=== PATIENT | male | born 1985 | race Two or more races ===

== ENCOUNTER 2017-12-06 19:00 | Inpatient (IN) | payer MEDICAID, OTHER ==
[~2017-12-06] VITALS: Ht 170.2 cm; Wt 69.6 kg
[~2017-12-06 19:00] MED LIST: ATRIPLA TABLET1 EAC1 ORAL; ITRACONAZOLE100 MG PO
[2017-12-06 19:30] VITALS: BP 125/82
[2017-12-06] MEDS ORDERED: Sodium Chloride 500ML 500 ML IV ONE (19:37)
[2017-12-06] MEDS ORDERED: Morphine Sulfate 4mg/ml Inj (IV USE ONLY) IVP ONE (19:45)
[2017-12-06] MEDS ORDERED: Acyclovir 1,000 MG in D5W 275 ML IVPB ONE (19:45)
[2017-12-06 20:19] LABS: HEMATOCRIT 40.7 % (42.0-52.0); HEMOGLOBIN 14.2 G/DL (14.2-18.0); MEAN CORPUSCULAR VOLUME 86 FL (80-99); PLATELET COUNT 174 K/UL (150-450); RED BLOOD COUNT 4.72 M/UL (4.70-6.10); RED CELL DISTRIBUTION WIDTH 11.5 % (11.6-14.8); WHITE BLOOD COUNT 3.4 K/UL (4.8-10.8)
[2017-12-06 20:20] LABS: BASOPHILS % (AUTO) 2.2 % (0.0-2.0); EOSINOPHILS % (AUTO) 4.1 % (0.0-3.0); LYMPHOCYTES % (AUTO) 28.4 % (20.0-45.0); MONOCYTES % (AUTO) 14.4 % (1.0-10.0); NEUTROPHILS % (AUTO) 50.8 % (45.0-75.0)
[2017-12-06 20:29] LABS: ANION GAP 9 mmol/L (5-15); BLOOD UREA NITROGEN 20 mg/dL (7-18); CALCIUM 8.5 MG/DL (8.5-10.1); CARBON DIOXIDE 27 MMOL/L (21-32); CHLORIDE 103 MMOL/L (98-107); CREATININE 0.9 MG/DL (0.55-1.30); POTASSIUM 3.9 MMOL/L (3.5-5.1); SODIUM 139 MMOL/L (136-145)
[2017-12-06 20:40] LABS: ALANINE AMINOTRANSFERASE 30 U/L (12-78); ALBUMIN 3.9 G/DL (3.4-5.0); ALBUMIN/GLOBULIN RATIO 0.8 (1.0-2.7); ALKALINE PHOSPHATASE 108 U/L (46-116); ASPARTATE AMINO TRANSFERASE 30 U/L (15-37); BILIRUBIN,TOTAL 1.1 MG/DL (0.2-1.0)
[2017-12-06 20:42] LABS: BILIRUBIN,DIRECT 0.2 MG/DL (0.0-0.3)
--- NOTE | 2017-12-06 22:19 | Emergency Room Report ---
History of Present Illness General Chief Complaint: Chest Pain Source: Patient Present Illness HPI 32-year-old male presents ED for evaluation. Patient complaining of chest pain 1 day. Sharp, left-sided, radiating to the back. Patient states there is also a rash on his chest for the last 2 days. Also on the left side. States it is itchy and painful. Pain is 10 out of 10, sharp radiating from the front to the back. Denies shortness of breath. Notes history of HIV. States he is not taking medication for the last several months because of insurance issues. Denies fevers or chills. No other aggravating relieving factors. Denies any other associated symptoms Patient History Past Medical History: HIV Past Surgical History: none Pertinent Family History: none Social History: Denies: smoking, alcohol use, drug use Immunizations: UTD Reviewed Nursing Documentation: PMH: Agreed; PSxH: Agreed Nursing Documentation-PMH Past Medical History: No History, Except For Hx Cardiac Problems: No - HIV Hx Hypertension: No Hx Pacemaker: No Hx Asthma: No Hx COPD: No Hx Diabetes: No Hx Cancer: No Hx Gastrointestinal Problems: No Hx Dialysis: No Hx Neurological Problems: No Hx Cerebrovascular Accident: No Hx Seizures: No Review of Systems All Other Systems: negative except mentioned in HPI Physical Exam Vital Signs Date Time Temp Pulse Resp B/P (MAP) Pulse Ox O2 Delivery O2 Flow Rate FiO2 12/06/17 19:03 98.6 77 14 122/80 95 Room Air 98.6 Sp02 EP Interpretation: reviewed, normal General Appearance: no apparent distress, alert, GCS 15, non-toxic Head: normocephalic, atraumatic Eyes: bilateral eye normal inspection, bilateral eye PERRL ENT: hearing grossly normal, normal pharynx, no angioedema, normal voice Neck: full range of motion, supple/symm/no masses Respiratory: chest non-tender, lungs clear, normal breath sounds, speaking full sentences Cardiovascular #1: regular rate, rhythm, no edema Cardiovascular #2: 2+ carotid (R), 2+ carotid (L), 2+ radial (R), 2+ radial (L) , 2+ dorsalis pedis (R), 2+ dorsalis pedis (L) Gastrointestinal: normal bowel sounds, non tender, soft, non-distended, no guarding, no rebound Rectal: deferred Genitourinary: normal inspection, no CVA tenderness Musculoskeletal: back normal, gait/station normal, normal range of motion, non- tender Neurologic: alert, oriented x3, responsive, motor strength/tone normal, sensory intact, speech normal Psychiatric: judgement/insight normal, memory normal, mood/affect normal, no suicidal/homicidal ideation Reflexes: 3+ bicep (R), 3+ bicep (L), 3+ tricep (R), 3+ tricep (L), 3+ knee (R) , 3+ knee (L) Skin: normal color, warm/dry, well hydrated, rash - vesicular rash on left side of chest, anterior and posteriorr. not crossing midline Lymphatic: no adenopathy Medical Decision Making Diagnostic Impression: Primary Impression: Shingles Qualified Codes: B02.7 - Disseminated zoster Additional Impression: HIV (human immunodeficiency virus infection) ER Course Hospital Course 32-year-old male presents ED with rash to the chest Differential diagnoses include: Cellulitis, abscess, rash. Clinical course Patient placed on stretcher. After initial history, physical exam reveals male in mild distress. On exam there is a vesicular rash to the left anterior and posterior chest. Uncrossing midline. Consistent with shingles. Patient is HIV positive, not taking any medication at this time. Patient is immunocompromise. Patient will require admission for IV acyclovir Patient given gabapentin, pain meds, IV's of acyclovir here EKG - NSR, no acute ishcemic changes interpreted by fl labs reviewed - leukopenia, Hb/Hct stable, no electrolyte abnormalities. Case discussed with Dr Lawson and he agreed to accept the patient to his service for further care and support Diagnosis - shingles, HIV Patient admitted to floor in serious condition Labs Test 12/06/17 20:02 White Blood Count 3.4 K/UL (4.8-10.8) Red Blood Count 4.72 M/UL (4.70-6.10) Hemoglobin 14.2 G/DL (14.2-18.0) Hematocrit 40.7 % (42.0-52.0) Mean Corpuscular Volume 86 FL (80-99) Mean Corpuscular Hemoglobin 30.2 PG (27.0-31.0) Mean Corpuscular Hemoglobin Concent 35.0 G/DL (32.0-36.0) Red Cell Distribution Width 11.5 % (11.6-14.8) Platelet Count 174 K/UL (150-450) Mean Platelet Volume 7.3 FL (6.5-10.1) Neutrophils (%) (Auto) 50.8 % (45.0-75.0) Lymphocytes (%) (Auto) 28.4 % (20.0-45.0) Monocytes (%) (Auto) 14.4 % (1.0-10.0) Eosinophils (%) (Auto) 4.1 % (0.0-3.0) Basophils (%) (Auto) 2.2 % (0.0-2.0) Sodium Level 139 MMOL/L (136-145) Potassium Level 3.9 MMOL/L (3.5-5.1) Chloride Level 103 MMOL/L (98-107) Carbon Dioxide Level 27 MMOL/L (21-32) Anion Gap 9 mmol/L (5-15) Blood Urea Nitrogen 20 mg/dL (7-18) Creatinine 0.9 MG/DL (0.55-1.30) Estimat Glomerular Filtration Rate > 60 mL/min (>60) Glucose Level 88 MG/DL (74-106) Calcium Level 8.5 MG/DL (8.5-10.1) Total Bilirubin 1.1 MG/DL (0.2-1.0) Direct Bilirubin 0.2 MG/DL (0.0-0.3) Aspartate Amino Transf (AST/SGOT) 30 U/L (15-37) Alanine Aminotransferase (ALT/SGPT) 30 U/L (12-78) Alkaline Phosphatase 108 U/L (46-116) Total Protein 8.6 G/DL (6.4-8.2) Albumin 3.9 G/DL (3.4-5.0) Globulin 4.7 g/dL Albumin/Globulin Ratio 0.8 (1.0-2.7) EKG Diagnostic Results Rate: normal Rhythm: NSR ST Segments: no acute changes ASA given to the pt in ED: No Rhythm Strip Diag. Results EP Interpretation: yes Rhythm: NSR, no PVC's, no ectopy Last Vital Signs Date Time Temp Pulse Resp B/P (MAP) Pulse Ox O2 Delivery O2 Flow Rate FiO2 12/06/17 20:09 98.6 12/06/17 19:30 77 14 Room Air 12/06/17 19:30 125/82 97 Status: improved Disposition: ADMITTED INPATIENT Condition: Serious Referrals: [facility],REFERRING (PCP) Wesly Winslow MD Dec 06, 2017 22:19
[2017-12-06] MEDS ORDERED: NKM (22:27)
[2017-12-06 22:45] VITALS: BP 123/79
[2017-12-06 23:30] VITALS: BP 120/82
[2017-12-06] MEDS: D5 1/2NS 1,000 ML IV SCH (23:50)
[2017-12-06] MEDS: Morphine Sulfate 2mg/ml Inj IVP PRN (23:52)
[2017-12-07 04:00] VITALS: BP 112/72
[2017-12-07] MEDS: Morphine Sulfate 2mg/ml Inj IVP PRN ×3 (06:24→18:41)
[2017-12-07 06:36] LABS: HEMATOCRIT 40.4 % (42.0-52.0); HEMOGLOBIN 13.6 G/DL (14.2-18.0); LYMPHOCYTES % (AUTO) 18.9 % (20.0-45.0); MEAN CORPUSCULAR VOLUME 86 FL (80-99); MONOCYTES % (AUTO) 12.4 % (1.0-10.0); NEUTROPHILS % (AUTO) 63.7 % (45.0-75.0); PLATELET COUNT 163 K/UL (150-450); RED BLOOD COUNT 4.68 M/UL (4.70-6.10); RED CELL DISTRIBUTION WIDTH 11.6 % (11.6-14.8); WHITE BLOOD COUNT 3.6 K/UL (4.8-10.8)
[2017-12-07 07:17] LABS: ANION GAP 11 mmol/L (5-15); BLOOD UREA NITROGEN 18 mg/dL (7-18); CALCIUM 7.9 MG/DL (8.5-10.1); CARBON DIOXIDE 23 MMOL/L (21-32); CHLORIDE 104 MMOL/L (98-107); CREATININE 0.7 MG/DL (0.55-1.30); POTASSIUM 3.8 MMOL/L (3.5-5.1); SODIUM 138 MMOL/L (136-145)
[2017-12-07 08:44] VITALS: BP 109/66
--- NOTE | 2017-12-07 10:49 | History and Physical ---
History of Present Illness General Date patient seen: Dec 07, 2017 Time patient seen: 12:00 Reason for Hospitalization: Chest Pain Present Illness HPI 32 yo man with HIV off medications c/o chest and back pain in EDFound to have Zoster and admitted Notes current pain in area of lesions around left chest through axillae and onto back No N/V No fevers or chills PMHx: HIV FHx: Reviewed by me; not pertinent for this encounter SHx; No tobacco/EtOH Allergies: Coded Allergies: MEROPENEM (Verified Allergy, Mild, Rash, 12/07/17) SULFADIAZINE (Verified Allergy, Mild, Rash, 12/07/17) Medication History Scheduled Efavirenz/Emtricitab/Tenofovir (Atripla), 1 TAB ORAL DAILY, (Reported) Itraconazole (Itraconazole), 200 MG PO BID, (Reported) No Known Medications* (NKM - No Known Medications*), 0 ., (Reported) Patient History Limited by: language barrier History Provided By: Patient Healthcare decision maker Resuscitation status Full Code Advanced Directive on File No Review of Systems Constitutional: Reports: malaise, weakness Eye: Reports: no symptoms ENT: Reports: no symptoms Respiratory: Reports: no symptoms Cardiovascular: Reports: chest pain Gastrointestinal: Reports: no symptoms Genitourinary: Reports: no symptoms Musculoskeletal: Reports: back pain, muscle pain Skin: Reports: rash Psychiatric: Reports: no symptoms Neurological: Reports: tingling Endocrine: Reports: no symptoms Hematologic/Lymphatic: Reports: no symptoms All Other Systems: negative except mentioned in HPI Physical Exam General Appearance: no apparent distress, alert, thin Lines, tubes and drains: peripheral HEENT: normocephalic, atraumatic, mucous membranes moist, PERRL, EOMI, pharynx normal, supple Neck: non-tender, supple Respiratory/Chest: lungs clear, normal breath sounds Breasts: no masses Cardiovascular/Chest: normal peripheral pulses, normal rate, regular rhythm, no JVD Abdomen: normal bowel sounds, soft Extremities: normal range of motion Skin Exam: rash - vesicular eruption on left chest wall through axillae and onto left scapular area 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, no motor/sensory deficits Lymphatic: anterior cervical, posterior cervical (L), posterior cervical (R) Last 24 Hour Vital Signs Date Time Temp Pulse Resp B/P (MAP) Pulse Ox O2 Delivery O2 Flow Rate FiO2 12/07/17 09:00 Room Air 12/07/17 08:44 97.5 83 20 109/66 (80) 97 97.5 12/07/17 04:00 97.7 77 20 112/72 (85) 96 97.7 12/06/17 23:30 98.4 83 19 120/82 (95) 97 98.4 12/06/17 23:00 Room Air 12/06/17 22:59 85 16 123/79 97 Room Air 12/06/17 22:45 85 16 123/79 97 Room Air 12/06/17 20:09 98.6 12/06/17 19:30 77 14 Room Air 12/06/17 19:30 98.6 14 125/82 97 Room Air 98.6 12/06/17 19:03 98.6 77 14 122/80 95 Room Air 98.6 Intake and Output 12/06/17 12/07/17 19:00 07:00 Intake Total 675 ml Balance 675 ml Intake Oral 150 ml IV Total 525 ml # Voids 2 Laboratory Tests Test 12/06/17 20:02 12/07/17 05:20 White Blood Count 3.4 K/UL (4.8-10.8) L 3.6 K/UL (4.8-10.8) L Red Blood Count 4.72 M/UL (4.70-6.10) 4.68 M/UL (4.70-6.10) L Hemoglobin 14.2 G/DL (14.2-18.0) 13.6 G/DL (14.2-18.0) L Hematocrit 40.7 % (42.0-52.0) L 40.4 % (42.0-52.0) L Mean Corpuscular Volume 86 FL (80-99) 86 FL (80-99) Mean Corpuscular Hemoglobin 30.2 PG (27.0-31.0) 29.0 PG (27.0-31.0) Mean Corpuscular Hemoglobin Concent 35.0 G/DL (32.0-36.0) 33.6 G/DL (32.0-36.0) Red Cell Distribution Width 11.5 % (11.6-14.8) L 11.6 % (11.6-14.8) Platelet Count 174 K/UL (150-450) 163 K/UL (150-450) Mean Platelet Volume 7.3 FL (6.5-10.1) 7.6 FL (6.5-10.1) Neutrophils (%) (Auto) 50.8 % (45.0-75.0) 63.7 % (45.0-75.0) Lymphocytes (%) (Auto) 28.4 % (20.0-45.0) 18.9 % (20.0-45.0) L Monocytes (%) (Auto) 14.4 % (1.0-10.0) H 12.4 % (1.0-10.0) H Eosinophils (%) (Auto) 4.1 % (0.0-3.0) H 4.0 % (0.0-3.0) H Basophils (%) (Auto) 2.2 % (0.0-2.0) H 1.0 % (0.0-2.0) Sodium Level 139 MMOL/L (136-145) 138 MMOL/L (136-145) Potassium Level 3.9 MMOL/L (3.5-5.1) 3.8 MMOL/L (3.5-5.1) Chloride Level 103 MMOL/L (98-107) 104 MMOL/L (98-107) Carbon Dioxide Level 27 MMOL/L (21-32) 23 MMOL/L (21-32) Anion Gap 9 mmol/L (5-15) 11 mmol/L (5-15) Blood Urea Nitrogen 20 mg/dL (7-18) H 18 mg/dL (7-18) Creatinine 0.9 MG/DL (0.55-1.30) 0.7 MG/DL (0.55-1.30) Estimat Glomerular Filtration Rate > 60 mL/min (>60) > 60 mL/min (>60) Glucose Level 88 MG/DL (74-106) 113 MG/DL (74-106) H Calcium Level 8.5 MG/DL (8.5-10.1) 7.9 MG/DL (8.5-10.1) L Total Bilirubin 1.1 MG/DL (0.2-1.0) H Direct Bilirubin 0.2 MG/DL (0.0-0.3) Aspartate Amino Transf (AST/SGOT) 30 U/L (15-37) Alanine Aminotransferase (ALT/SGPT) 30 U/L (12-78) Alkaline Phosphatase 108 U/L (46-116) Total Protein 8.6 G/DL (6.4-8.2) H Albumin 3.9 G/DL (3.4-5.0) Globulin 4.7 g/dL Albumin/Globulin Ratio 0.8 (1.0-2.7) L Height (Feet): 5 Height (Inches): 7.00 Weight (Pounds): 153 Medications Current Medications Medications (Trade) Dose Ordered Sig/Artemio Route PRN Reason Start Time Stop Time Status Last Admin Dose Admin Acetaminophen (Tylenol) 650 mg Q4H PRN ORAL Mild Pain/Temp > 100.5 12/06/17 23:15 01/05/18 23:14 Acetaminophen/ Hydrocodone Bitart ([place] 5/325) 1 tab Q6H PRN ORAL Moderate Pain (Pain Scale 4-6) 12/06/17 23:15 12/13/17 23:14 Acyclovir (Zovirax) 800 mg FIVE TIMES A DAY ORAL 12/07/17 07:00 01/06/18 06:59 12/07/17 08:58 Dextrose/Sodium Chloride 1,000 ml @ 75 mls/hr [id number] IV 12/06/17 23:15 01/05/18 23:14 12/06/17 23:50 Morphine Sulfate (Morphine Sulfate) 2 mg Q6HR PRN IVP Severe Pain (Pain Scale 7-10) 12/06/17 23:15 12/13/17 23:14 12/07/17 06:24 Ondansetron HCl (Zofran) 4 mg Q6H PRN IVP Nausea & Vomiting 12/06/17 23:15 01/05/18 23:14 Assessment/Plan Status: not improved Status Narrative 32 yo man with HIV unknown CD4 count and HZV Assessment/Plan 1) HZV Continue IV acyclovir Pain control 2) HIV -ID consult 3) Leukopenia Likely secondary to HIV check CD4 counts Follow for signs of sepsis/superinfection of Zoster DVT Prophylaxis: SCD's Code Status: Full Hospital Classification declaration: Based on this initial evaluation and depending on the patient's clinical course I anticipate that this patient will require hospitalization for at least 2-3 days Disposition: Once the patient is stable to leave the hospital I anticipate the patient will likely be discharged to the following environment: Home I spent 70 minutes on this patients car and 36 minutes was dedicated to counseling and care coordination Time of note may not reflect time of encounter Estevan Hartmann M.D. Dec 07, 2017 10:49
[2017-12-07 12:01] VITALS: BP 113/71
[2017-12-07] MEDS: D5 1/2NS 1,000 ML IV SCH (12:17)
--- NOTE | 2017-12-07 12:41 | Infectious Diseases Prog Note ---
Assessment/Plan Assessment/Plan Full consult to follow: Left trunk HZV HIV iv acyclovir cd4/viral load triumeq thank you Subjective Allergies: Coded Allergies: MEROPENEM (Verified Allergy, Mild, Rash, 12/07/17) SULFADIAZINE (Verified Allergy, Mild, Rash, 12/07/17) Objective Vital Signs Last 24 Hour Vital Signs Date Time Temp Pulse Resp B/P (MAP) Pulse Ox O2 Delivery O2 Flow Rate FiO2 12/07/17 12:01 97.7 66 20 113/71 (85) 97 97.7 12/07/17 09:00 Room Air 12/07/17 08:44 97.5 83 20 109/66 (80) 97 97.5 12/07/17 04:00 97.7 77 20 112/72 (85) 96 97.7 12/06/17 23:30 98.4 83 19 120/82 (95) 97 98.4 12/06/17 23:00 Room Air 12/06/17 22:59 85 16 123/79 97 Room Air 12/06/17 22:45 85 16 123/79 97 Room Air 12/06/17 20:09 98.6 12/06/17 19:30 77 14 Room Air 12/06/17 19:30 98.6 14 125/82 97 Room Air 98.6 12/06/17 19:03 98.6 77 14 122/80 95 Room Air 98.6 Height (Feet): 5 Height (Inches): 7.00 Weight (Pounds): 153 Laboratory Tests Test 12/06/17 20:02 12/07/17 05:20 White Blood Count 3.4 K/UL (4.8-10.8) L 3.6 K/UL (4.8-10.8) L Red Blood Count 4.72 M/UL (4.70-6.10) 4.68 M/UL (4.70-6.10) L Hemoglobin 14.2 G/DL (14.2-18.0) 13.6 G/DL (14.2-18.0) L Hematocrit 40.7 % (42.0-52.0) L 40.4 % (42.0-52.0) L Mean Corpuscular Volume 86 FL (80-99) 86 FL (80-99) Mean Corpuscular Hemoglobin 30.2 PG (27.0-31.0) 29.0 PG (27.0-31.0) Mean Corpuscular Hemoglobin Concent 35.0 G/DL (32.0-36.0) 33.6 G/DL (32.0-36.0) Red Cell Distribution Width 11.5 % (11.6-14.8) L 11.6 % (11.6-14.8) Platelet Count 174 K/UL (150-450) 163 K/UL (150-450) Mean Platelet Volume 7.3 FL (6.5-10.1) 7.6 FL (6.5-10.1) Neutrophils (%) (Auto) 50.8 % (45.0-75.0) 63.7 % (45.0-75.0) Lymphocytes (%) (Auto) 28.4 % (20.0-45.0) 18.9 % (20.0-45.0) L Monocytes (%) (Auto) 14.4 % (1.0-10.0) H 12.4 % (1.0-10.0) H Eosinophils (%) (Auto) 4.1 % (0.0-3.0) H 4.0 % (0.0-3.0) H Basophils (%) (Auto) 2.2 % (0.0-2.0) H 1.0 % (0.0-2.0) Sodium Level 139 MMOL/L (136-145) 138 MMOL/L (136-145) Potassium Level 3.9 MMOL/L (3.5-5.1) 3.8 MMOL/L (3.5-5.1) Chloride Level 103 MMOL/L (98-107) 104 MMOL/L (98-107) Carbon Dioxide Level 27 MMOL/L (21-32) 23 MMOL/L (21-32) Anion Gap 9 mmol/L (5-15) 11 mmol/L (5-15) Blood Urea Nitrogen 20 mg/dL (7-18) H 18 mg/dL (7-18) Creatinine 0.9 MG/DL (0.55-1.30) 0.7 MG/DL (0.55-1.30) Estimat Glomerular Filtration Rate > 60 mL/min (>60) > 60 mL/min (>60) Glucose Level 88 MG/DL (74-106) 113 MG/DL (74-106) H Calcium Level 8.5 MG/DL (8.5-10.1) 7.9 MG/DL (8.5-10.1) L Total Bilirubin 1.1 MG/DL (0.2-1.0) H Direct Bilirubin 0.2 MG/DL (0.0-0.3) Aspartate Amino Transf (AST/SGOT) 30 U/L (15-37) Alanine Aminotransferase (ALT/SGPT) 30 U/L (12-78) Alkaline Phosphatase 108 U/L (46-116) Total Protein 8.6 G/DL (6.4-8.2) H Albumin 3.9 G/DL (3.4-5.0) Globulin 4.7 g/dL Albumin/Globulin Ratio 0.8 (1.0-2.7) L Current Medications Medications (Trade) Dose Ordered Sig/Artemio Route PRN Reason Start Time Stop Time Status Last Admin Dose Admin Acetaminophen (Tylenol) 650 mg Q4H PRN ORAL Mild Pain/Temp > 100.5 12/06/17 23:15 01/05/18 23:14 Acetaminophen/ Hydrocodone Bitart ([place] 5/325) 1 tab Q6H PRN ORAL Moderate Pain (Pain Scale 4-6) 12/06/17 23:15 12/13/17 23:14 Acyclovir (Zovirax) 800 mg FIVE TIMES A DAY ORAL 12/07/17 07:00 01/06/18 06:59 12/07/17 12:17 Dextrose/Sodium Chloride 1,000 ml @ 75 mls/hr [id number] IV 12/06/17 23:15 01/05/18 23:14 12/07/17 12:17 Morphine Sulfate (Morphine Sulfate) 2 mg Q6HR PRN IVP Severe Pain (Pain Scale 7-10) 12/06/17 23:15 12/13/17 23:14 12/07/17 12:17 Ondansetron HCl (Zofran) 4 mg Q6H PRN IVP Nausea & Vomiting 12/06/17 23:15 01/05/18 23:14 Dandre Red MD Dec 07, 2017 12:41
[2017-12-07 16:00] VITALS: BP 117/78
[2017-12-07] MEDS ORDERED: D5 1/2NS 1000ml IV ONE (16:59)
[2017-12-07] MEDS: Acyclovir 700 MG in NS 110 ML IV SCH ×2 (17:21→21:56)
[2017-12-07 20:00] VITALS: BP 125/65
[2017-12-07] MEDS: Norco 5mg/325mg tab ORAL PRN (22:01)
[2017-12-08] VITALS: BP 119/66
[2017-12-08] MEDS: D5 1/2NS 1,000 ML IV SCH ×3 (01:55→22:48)
[2017-12-08 04:00] VITALS: BP 120/60
[2017-12-08] MEDS: Acyclovir 700 MG in NS 110 ML IV SCH ×3 (05:40→22:48)
[2017-12-08] MEDS: Morphine Sulfate 2mg/ml Inj IVP PRN ×3 (05:40→22:49)
[2017-12-08 06:19] LABS: BASOPHILS % (AUTO) 0.3 % (0.0-2.0); EOSINOPHILS % (AUTO) 4.8 % (0.0-3.0); HEMATOCRIT 41.7 % (42.0-52.0); HEMOGLOBIN 14.2 G/DL (14.2-18.0); LYMPHOCYTES % (AUTO) 19.8 % (20.0-45.0); MEAN CORPUSCULAR VOLUME 86 FL (80-99); MONOCYTES % (AUTO) 9.9 % (1.0-10.0); NEUTROPHILS % (AUTO) 65.2 % (45.0-75.0); PLATELET COUNT 154 K/UL (150-450); RED BLOOD COUNT 4.84 M/UL (4.70-6.10); RED CELL DISTRIBUTION WIDTH 11.6 % (11.6-14.8); WHITE BLOOD COUNT 3.7 K/UL (4.8-10.8)
[2017-12-08 06:24] LABS: ANION GAP 8 mmol/L (5-15); BLOOD UREA NITROGEN 9 mg/dL (7-18); CALCIUM 8.2 MG/DL (8.5-10.1); CARBON DIOXIDE 25 MMOL/L (21-32); CHLORIDE 105 MMOL/L (98-107); CREATININE 0.6 MG/DL (0.55-1.30); POTASSIUM 3.7 MMOL/L (3.5-5.1); SODIUM 138 MMOL/L (136-145)
[2017-12-08 08:19] VITALS: BP 123/72
[2017-12-08] MEDS: Norco 5mg/325mg tab ORAL PRN (08:42)
[2017-12-08 11:38] VITALS: BP 111/71
--- NOTE | 2017-12-08 13:39 | General Progress Note ---
Assessment/Plan Status: stable, progressing Status Narrative 32 yo man with HIV unknown CD4 count and HZV infection Assessment/Plan 1) HZV Continue IV acyclovir Pain control 2) HIV -ID recs appreciated- f/u CD4 count 3) Leukopenia Likely secondary to HIV f/u CD4 counts Follow for signs of sepsis/superinfection of Zoster DVT Prophylaxis: scd Code status: full Hospital Classification declaration: Based on this initial evaluation, and depending on the patient's clinical course, I anticipate that this patient will require hospitalization for 2-3 days. Disposition: Once the patient is stable to leave the hospital, I anticipate the patient will likely be discharged to the following environment:Home I spent 45 minutes on this patient's case, and 23 minutes was dedicated to counseling and/or care coordination. Time of note may not reflect time of encounter. Subjective Date patient seen: Dec 08, 2017 Time patient seen: 13:45 ROS Limited/Unobtainable: No Constitutional: Reports: weakness HEENT: Reports: no symptoms Cardiovascular: Reports: chest pain Respiratory: Reports: no symptoms Gastrointestinal/Abdominal: Reports: no symptoms Genitourinary: Reports: no symptoms Neurologic/Psychiatric: Reports: no symptoms Endocrine: Reports: no symptoms Allergies: Coded Allergies: MEROPENEM (Verified Allergy, Mild, Rash, 12/07/17) SULFADIAZINE (Verified Allergy, Mild, Rash, 12/07/17) All Systems: reviewed and negative except above Subjective Events of overnight noted chart reviewed by me patient notes pain, persistent No fevers or chills Objective Last 24 Hour Vital Signs Date Time Temp Pulse Resp B/P (MAP) Pulse Ox O2 Delivery O2 Flow Rate FiO2 12/08/17 11:38 97.9 75 18 111/71 (84) 95 97.9 12/08/17 09:41 97.9 12/08/17 08:42 97.9 12/08/17 08:19 97.9 71 18 123/72 (89) 96 97.9 12/08/17 06:10 98.1 12/08/17 04:00 98.1 70 18 120/60 (80) 97 98.1 12/08/17 00:00 98.2 71 19 119/66 (83) 96 98.2 12/07/17 21:00 Room Air 12/07/17 20:00 98.6 80 18 125/65 (85) 95 98.6 12/07/17 16:00 97.7 79 19 117/78 (91) 98 97.7 Intake and Output 12/07/17 12/08/17 19:00 07:00 Intake Total 1440 ml 1375 ml Balance 1440 ml 1375 ml Intake Oral 580 ml 480 ml IV Total 860 ml 895 ml # Voids 5 2 Laboratory Tests 12/07/17 14:25: White Blood Count 3.4, Lymphocytes 27, Nucleated Red Blood Cells , Absolute Lymphocytes (Cell Immunity 0.9, Percent CD3 Cells 64.7, Absolute CD3 Count 582L , Percent CD4 Cells 9.6L, Absolute CD4 Count 86L, T-Lymphocyte CD4/CD8 Ratio 0.18L, Percent CD8 Cells 54.7H, Absolute CD8 Count 492, HIV-1 RNA (PCR) log10 Value [Pending], HIV-1 RNA Ultraquantitative (PCR) [Pending] 12/08/17 05:45: White Blood Count 3.7L, Red Blood Count 4.84, Hemoglobin 14.2, Hematocrit 41.7L , Mean Corpuscular Volume 86, Mean Corpuscular Hemoglobin 29.2, Mean Corpuscular Hemoglobin Concent 33.9, Red Cell Distribution Width 11.6, Platelet Count 154, Mean Platelet Volume 8.3, Neutrophils (%) (Auto) 65.2, Lymphocytes (% ) (Auto) 19.8L, Monocytes (%) (Auto) 9.9, Eosinophils (%) (Auto) 4.8H, Basophils (%) (Auto) 0.3, Sodium Level 138, Potassium Level 3.7, Chloride Level 105, Carbon Dioxide Level 25, Anion Gap 8, Blood Urea Nitrogen 9, Creatinine 0.6 , Estimat Glomerular Filtration Rate > 60, Glucose Level 101, Calcium Level 8.2L Height (Feet): 5 Height (Inches): 7.00 Weight (Pounds): 153 General Appearance: no apparent distress, alert, thin EENT: PERRL/EOMI, TMs normal, pharynx normal, pale conjunctivae Neck: non-tender, supple Cardiovascular: normal peripheral pulses, normal rate, regular rhythm Respiratory/Chest: chest wall non-tender, lungs clear Abdomen: normal bowel sounds, non tender, soft Pelvis: normal external exam Extremities: normal range of motion Edema: no edema noted Arm (L), no edema noted Arm (R) Edema: trace edema 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 Dec 08, 2017 13:39
[2017-12-08] MEDS ORDERED: D5 1/2NS 1000ml IV ONE (13:45)
[2017-12-08 16:05] VITALS: BP 108/67
--- NOTE | 2017-12-08 16:58 | Infectious Diseases Prog Note ---
Assessment/Plan Assessment/Plan Full consult dictated: Left trunk HZV HIV, AIDS, cd4 - 86 iv acyclovir po acyclovir soon if continues to improve check viral load prophylaxis triumeq not available Subjective Allergies: Coded Allergies: MEROPENEM (Verified Allergy, Mild, Rash, 12/07/17) SULFADIAZINE (Verified Allergy, Mild, Rash, 12/07/17) Objective Vital Signs Last 24 Hour Vital Signs Date Time Temp Pulse Resp B/P (MAP) Pulse Ox O2 Delivery O2 Flow Rate FiO2 12/08/17 16:05 98.1 83 18 108/67 (81) 94 98.1 12/08/17 11:38 97.9 75 18 111/71 (84) 95 97.9 12/08/17 09:41 97.9 12/08/17 08:42 97.9 12/08/17 08:19 97.9 71 18 123/72 (89) 96 97.9 12/08/17 06:10 98.1 12/08/17 04:00 98.1 70 18 120/60 (80) 97 98.1 12/08/17 00:00 98.2 71 19 119/66 (83) 96 98.2 12/07/17 21:00 Room Air 12/07/17 20:00 98.6 80 18 125/65 (85) 95 98.6 Height (Feet): 5 Height (Inches): 7.00 Weight (Pounds): 153 Laboratory Tests Test 12/08/17 05:45 White Blood Count 3.7 K/UL (4.8-10.8) L Red Blood Count 4.84 M/UL (4.70-6.10) Hemoglobin 14.2 G/DL (14.2-18.0) Hematocrit 41.7 % (42.0-52.0) L Mean Corpuscular Volume 86 FL (80-99) Mean Corpuscular Hemoglobin 29.2 PG (27.0-31.0) Mean Corpuscular Hemoglobin Concent 33.9 G/DL (32.0-36.0) Red Cell Distribution Width 11.6 % (11.6-14.8) Platelet Count 154 K/UL (150-450) Mean Platelet Volume 8.3 FL (6.5-10.1) Neutrophils (%) (Auto) 65.2 % (45.0-75.0) Lymphocytes (%) (Auto) 19.8 % (20.0-45.0) L Monocytes (%) (Auto) 9.9 % (1.0-10.0) Eosinophils (%) (Auto) 4.8 % (0.0-3.0) H Basophils (%) (Auto) 0.3 % (0.0-2.0) Sodium Level 138 MMOL/L (136-145) Potassium Level 3.7 MMOL/L (3.5-5.1) Chloride Level 105 MMOL/L (98-107) Carbon Dioxide Level 25 MMOL/L (21-32) Anion Gap 8 mmol/L (5-15) Blood Urea Nitrogen 9 mg/dL (7-18) Creatinine 0.6 MG/DL (0.55-1.30) Estimat Glomerular Filtration Rate > 60 mL/min (>60) Glucose Level 101 MG/DL (74-106) Calcium Level 8.2 MG/DL (8.5-10.1) L Current Medications Medications (Trade) Dose Ordered Sig/Artemio Route PRN Reason Start Time Stop Time Status Last Admin Dose Admin Acetaminophen (Tylenol) 650 mg Q4H PRN ORAL Mild Pain/Temp > 100.5 12/06/17 23:15 01/05/18 23:14 Acetaminophen/ Hydrocodone Bitart ([place] 5/325) 1 tab Q6H PRN ORAL Moderate Pain (Pain Scale 4-6) 12/06/17 23:15 12/13/17 23:14 12/08/17 08:42 Acyclovir 700 mg/ Sodium Chloride 110 ml @ 110 mls/hr Q8HR IV 12/07/17 14:00 01/06/18 13:59 12/08/17 13:45 Dextrose/Sodium Chloride 1,000 ml @ 75 mls/hr [id number] IV 12/06/17 23:15 01/05/18 23:14 12/08/17 07:37 Morphine Sulfate (Morphine Sulfate) 2 mg Q6HR PRN IVP Severe Pain (Pain Scale 7-10) 12/06/17 23:15 12/13/17 23:14 12/08/17 15:33 Ondansetron HCl (Zofran) 4 mg Q6H PRN IVP Nausea & Vomiting 12/06/17 23:15 01/05/18 23:14 Dandre Red MD Dec 08, 2017 16:58
[2017-12-08] MEDS ORDERED: Azithromycin 600mg Tab ORAL SCH (18:00)
[2017-12-08] MEDS: Atovaquone 750mg/5ml Susp ORAL SCH (19:35)
[2017-12-08 20:00] VITALS: BP 125/76
--- NOTE | 2017-12-08 23:45 | Consultation ---
DATE OF CONSULTATION: 12/08/2017 INFECTIOUS DISEASE CONSULTATION CONSULTING PHYSICIAN: Dandre Red M.D. ATTENDING PHYSICIAN: Dr. Nathan Nye. REFERRING PHYSICIAN: Dr. Hartmann. REASON FOR CONSULTATION: Left trunk/back and chest herpes zoster virus infection/shingles. REASON FOR ADMISSION: Left trunk herpes zoster virus infection/shingles. HISTORY OF PRESENT ILLNESS: This is a 32-year-old male who has a history of HIV and AIDS. The patient has been on Triumeq in the past, however, he has been off of it, he has been noncompliant for 2 months. The patient presents to [facility] with left trunk/back and chest herpes zoster virus infection/shingles. Infectious Disease consultation is requested. The patient has been started on intravenous acyclovir. I saw the patient yesterday. Today, the herpes zoster lesions are drying up. The patient's T-cell count is 86 and viral load is pending. Hospital does not have Triumeq available. The patient will continue intravenous acyclovir for now. MAR was noted. Notes were reviewed. REVIEW OF SYSTEMS: CONSTITUTIONAL: No fever, chills, night sweats, or weight loss. HEAD AND NECK: No head pain or neck pain. CARDIAC: No chest pain. GASTROINTESTINAL: No nausea, vomiting, or diarrhea. GENITOURINARY: No dysuria or frequency. PULMONARY: No congestion or shortness of breath. SKIN: No new rash or itching. EXTREMITIES: No extremity pain. NEUROLOGIC: No seizures. MUSCULOSKELETAL: He has significant left trunk/back/chest pain. PAST MEDICAL HISTORY: History of HIV and AIDS. No history of diabetes or hypertension. He has been noncompliant with his Triumeq for his HIV and AIDS. No history of diabetes, hypertension, or cancer. ALLERGIES: Meropenem and sulfadiazine. FAMILY HISTORY: Noncontributory. SOCIAL HISTORY: Negative for smoking, alcohol, or drug abuse. MEDICATIONS: Upon reviewing the MAR in the outpatient setting, he is on Triumeq. Currently, he is on intravenous acyclovir 700 mg every 8 hours dosing 10 mg/kg. The patient weighed around 70 kilograms. The patient also on hydrocodone and acetaminophen, morphine, and Zofran. Outside medications include Triumeq, but has been noncompliant for 2 months. PHYSICAL EXAMINATION: VITAL SIGNS: Temperature 98.1, pulse rate 83, respiratory rate 18, blood pressure 108/67, and saturation 94%. GENERAL: The patient is alert, responsive, no acute distress. HEAD AND NECK: Oral exam, no thrush. Eye exam, no icterus. Neck is supple. No JVD. Normocephalic. No facial droop. No neck stiffness. HEART: Regular. No obvious gallop or murmur. ABDOMEN: Soft. Positive bowel sounds. Nontender. LUNGS: Clear bilaterally. No rhonchi or rales. SKIN: He has a herpes zoster or shingles rash of the left trunk/chest and back. Vesicles were noted. They are drying compared to yesterday. MUSCULOSKELETAL: No effusion. Legs are without cellulitis. PERIPHERAL VASCULAR: No cyanosis or gangrene. NEUROLOGIC: Intact. GENITOURINARY: No Perez. LINE SITES: Without phlebitis. LABORATORY DATA: CD4 count is 86. Viral load pending. Creatinine is 0.6. White count 3.7, hemoglobin 14.2, and platelet count is 154. IMAGING: No imaging on this hospitalization. ASSESSMENT AND PLAN: 1. The patient has left flank/back and chest herpes zoster virus/shingles. The patient is on intravenous acyclovir, this is day #2, it is 700 mg intravenous q.8 h. Continue intravenous acyclovir. The lesions continue to dry as they are, then can transition to oral acyclovir 800 mg 5 times a day for approximately another week to finish course. There is no secondary cellulitis, so he does not need any antibacterial medications or antibiotics. The patient remains in contact isolation. Continue pain management per primary for pain related to the infection. 2. Human immunodeficiency virus and acquired immune deficiency syndrome. T-cell count 86 and viral load is pending. The patient is noncompliant with Triumeq. Triumeq is not available at this hospital. At this time, the patient will need to follow up with primary physician to get further genotyping and treatment and restarting Triumeq. We will await viral load. Because the patient has human immunodeficiency virus and acquired immune deficiency syndrome, we will place on prophylaxis. The patient is allergic to sulfadiazine thus would prefer dapsone prophylaxis, however, will have to check a G6PD level prior to dapsone. In the meantime, we will place the patient on atovaquone 750 mg q.12 hours and also weekly azithromycin once a week 1200 mg . 3. Pain management. 4. Allergies to meropenem and sulfadiazine. 5. Family history is noncontributory. 6. Social history is negative. 7. MAR was noted. 8. Case was discussed with RN. 9. Case was discussed with Dr. Hartmann. 10. Thank you for this consultation. Dandre Red M.D. DR: LUBNA JOB#: [id number] CC:
[2017-12-09] VITALS: BP_SYST 119; BP_SYST 125; BP_DIAS 75; BP_DIAS 76
[2017-12-09 04:00] VITALS: BP 121/78
[2017-12-09] MEDS: Acyclovir 700 MG in NS 110 ML IV SCH ×3 (04:58→22:33)
[2017-12-09] MEDS: Morphine Sulfate 2mg/ml Inj IVP PRN ×3 (04:59→21:14)
[2017-12-09 06:24] LABS: BASOPHILS % (AUTO) 0.5 % (0.0-2.0); EOSINOPHILS % (AUTO) 4.2 % (0.0-3.0); HEMATOCRIT 40.8 % (42.0-52.0); HEMOGLOBIN 13.8 G/DL (14.2-18.0); MEAN CORPUSCULAR VOLUME 86 FL (80-99); MONOCYTES % (AUTO) 9.7 % (1.0-10.0); NEUTROPHILS % (AUTO) 68.8 % (45.0-75.0); PLATELET COUNT 159 K/UL (150-450); RED BLOOD COUNT 4.75 M/UL (4.70-6.10); RED CELL DISTRIBUTION WIDTH 11.5 % (11.6-14.8); WHITE BLOOD COUNT 4.3 K/UL (4.8-10.8)
[2017-12-09 06:29] LABS: ANION GAP 8 mmol/L (5-15); BLOOD UREA NITROGEN 9 mg/dL (7-18); CALCIUM 8.6 MG/DL (8.5-10.1); CARBON DIOXIDE 27 MMOL/L (21-32); CHLORIDE 103 MMOL/L (98-107); CREATININE 0.6 MG/DL (0.55-1.30); POTASSIUM 3.7 MMOL/L (3.5-5.1); SODIUM 137 MMOL/L (136-145)
[2017-12-09 08:31] VITALS: BP 110/70
[2017-12-09] MEDS: Atovaquone 750mg/5ml Susp ORAL SCH ×2 (09:40→18:10)
[2017-12-09 12:07] VITALS: BP 114/70
[2017-12-09 16:17] VITALS: BP 117/66
[2017-12-09] MEDS: D5 1/2NS 1,000 ML IV SCH (18:09)
--- NOTE | 2017-12-09 18:27 | General Progress Note ---
Assessment/Plan Status: progressing Status Narrative 32 yo man with HIV/AIDs and HZV infection Assessment/Plan 1) HZV Continue IV acyclovir Pain control 2) HIV/AIDS CD4 count 86 -ID recs appreciated- f/u viral load -prophylaxis 3) Leukopenia Likely secondary to HIV given CD4 count 86 Follow for signs of sepsis/superinfection of Zoster DVT Prophylaxis: scd Code status: full Hospital Classification declaration: Based on this initial evaluation, and depending on the patient's clinical course, I anticipate that this patient will require hospitalization for 2-3 days. Disposition: Once the patient is stable to leave the hospital, I anticipate the patient will likely be discharged to the following environment:Home I spent 45 minutes on this patient's case, and 23 minutes was dedicated to counseling and/or care coordination. Time of note may not reflect time of encounter. Subjective Date patient seen: Dec 09, 2017 Time patient seen: 14:44 ROS Limited/Unobtainable: No Constitutional: Reports: malaise HEENT: Reports: no symptoms Cardiovascular: Reports: no symptoms Respiratory: Reports: no symptoms Gastrointestinal/Abdominal: Reports: no symptoms Genitourinary: Reports: no symptoms Neurologic/Psychiatric: Reports: tingling Endocrine: Reports: no symptoms Hematologic/Lymphatic: Reports: no symptoms Allergies: Coded Allergies: MEROPENEM (Verified Allergy, Mild, Rash, 12/07/17) SULFADIAZINE (Verified Allergy, Mild, Rash, 12/07/17) All Systems: reviewed and negative except above Subjective Events of overnight noted Chart reviewed Patient with continued pain, controlled with meds Notes fatigue Aware of CD4 count Objective Last 24 Hour Vital Signs Date Time Temp Pulse Resp B/P (MAP) Pulse Ox O2 Delivery O2 Flow Rate FiO2 12/09/17 16:17 98.1 82 18 117/66 (83) 95 98.1 12/09/17 12:07 97.7 67 18 114/70 (85) 97 97.7 12/09/17 08:31 97.2 66 18 110/70 (83) 96 97.2 12/09/17 04:00 97.9 73 18 121/78 (92) 94 97.9 12/09/17 00:00 99.1 87 20 119/75 (90) 95 99.1 12/08/17 20:00 99.3 82 20 125/76 (92) 95 99.3 Intake and Output 12/08/17 12/09/17 19:00 07:00 Intake Total 1312.5 ml 1030 ml Output Total 2 ml Balance 1310.5 ml 1030 ml Intake Oral 600 ml IV Total 712.5 ml 1030 ml Output Urine Total 2 ml # Voids 1 3 Laboratory Tests 12/09/17 05:20: White Blood Count 4.3L, Red Blood Count 4.75, Hemoglobin 13.8L, Hematocrit 40.8L , Mean Corpuscular Volume 86, Mean Corpuscular Hemoglobin 29.1, Mean Corpuscular Hemoglobin Concent 33.9, Red Cell Distribution Width 11.5L, Platelet Count 159, Mean Platelet Volume 7.3, Neutrophils (%) (Auto) 68.8, Lymphocytes (%) (Auto) 17.0L, Monocytes (%) (Auto) 9.7, Eosinophils (%) (Auto) 4.2H, Basophils (%) (Auto) 0.5, Sodium Level 137, Potassium Level 3.7, Chloride Level 103, Carbon Dioxide Level 27, Anion Gap 8, Blood Urea Nitrogen 9, Creatinine 0.6, Estimat Glomerular Filtration Rate > 60, Glucose Level 98, Calcium Level 8.6 Height (Feet): 5 Height (Inches): 7.00 Weight (Pounds): 153 General Appearance: alert, thin EENT: PERRL/EOMI, normal ENT inspection, pharynx normal, pale conjunctivae Neck: non-tender, supple, normal inspection Cardiovascular: normal peripheral pulses, normal rate, regular rhythm Respiratory/Chest: lungs clear, normal breath sounds Abdomen: normal bowel sounds, non tender, soft Pelvis: normal external exam Genitourinary/Rectal: normal genital exam Edema: no edema noted Arm (L), no edema noted Arm (R) 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 Dec 09, 2017 18:27
[2017-12-09 20:00] VITALS: BP 120/74
[2017-12-10 00:16] VITALS: BP 117/60
[2017-12-10 04:00] VITALS: BP 121/68
[2017-12-10] MEDS: Acyclovir 700 MG in NS 110 ML IV SCH (06:10)
[2017-12-10 06:21] LABS: BASOPHILS % (AUTO) 1.8 % (0.0-2.0); EOSINOPHILS % (AUTO) 5.5 % (0.0-3.0); HEMATOCRIT 42.6 % (42.0-52.0); HEMOGLOBIN 14.6 G/DL (14.2-18.0); LYMPHOCYTES % (AUTO) 20.7 % (20.0-45.0); MEAN CORPUSCULAR VOLUME 86 FL (80-99); MONOCYTES % (AUTO) 12.9 % (1.0-10.0); NEUTROPHILS % (AUTO) 59.2 % (45.0-75.0); PLATELET COUNT 165 K/UL (150-450); RED BLOOD COUNT 4.96 M/UL (4.70-6.10); RED CELL DISTRIBUTION WIDTH 11.5 % (11.6-14.8); WHITE BLOOD COUNT 3.8 K/UL (4.8-10.8)
[2017-12-10 07:01] LABS: ANION GAP 7 mmol/L (5-15); BLOOD UREA NITROGEN 10 mg/dL (7-18); CALCIUM 8.7 MG/DL (8.5-10.1); CARBON DIOXIDE 27 MMOL/L (21-32); CHLORIDE 104 MMOL/L (98-107); CREATININE 0.7 MG/DL (0.55-1.30); SODIUM 138 MMOL/L (136-145)
[2017-12-10 08:00] VITALS: BP 120/70
[2017-12-10] MEDS: Morphine Sulfate 2mg/ml Inj IVP PRN ×2 (08:39→18:15)
[2017-12-10] MEDS: Atovaquone 750mg/5ml Susp ORAL SCH ×2 (08:39→18:14)
[2017-12-10] MEDS: D5 1/2NS 1,000 ML IV SCH ×2 (08:39→20:35)
[2017-12-10 12:28] VITALS: BP 119/74
--- NOTE | 2017-12-10 15:10 | Infectious Diseases Prog Note ---
Assessment/Plan Assessment/Plan ASSESSMENT AND PLAN: 1. left trunk HZV/shingles - clinically better - change to oral acyclovir x 1 week, 800 mg 5x/day - pain mgt per primary 2. HIV and AIDS - CD4-86, non-complaint with anti-retrovirals - triumeq as an outpatient, not available at [facility] - azithromycin and atovaquone prophylaxis (+ sulfa allergy) - can change atovaquone to dapsone 100 mg/daily if G6PD level normal, results pending - f/u with HIV MD as an outpatient 3. Pain management. 4. Allergies to meropenem and sulfadiazine. 5. Family history is noncontributory. 6. Social history is negative. 7. MAR was noted. 8. Case was discussed with RN. 9. Case was discussed with Dr. Hartmann. 10. Thank you for this consultation. Subjective Constitutional: Denies: fever HEENT: Denies: congestion Respiratory: Denies: shortness of breath Cardiovascular: Denies: chest pain Gastrointestinal/Abdominal: Denies: nausea, vomiting, diarrhea Genitourinary: Denies: dysuria Neurologic: Denies: headache Skin: Reports: other - rash dryer, still with pain Hematologic: Denies: bleeding Musculoskeletal: Denies: pain Allergies: Coded Allergies: MEROPENEM (Verified Allergy, Mild, Rash, 12/07/17) SULFADIAZINE (Verified Allergy, Mild, Rash, 12/07/17) Objective Vital Signs Last 24 Hour Vital Signs Date Time Temp Pulse Resp B/P (MAP) Pulse Ox O2 Delivery O2 Flow Rate FiO2 12/10/17 12:28 97.5 73 18 119/74 (89) 97 97.5 12/10/17 09:00 96.8 12/10/17 08:39 96.8 12/10/17 08:00 96.8 74 18 120/70 (87) 98 96.8 12/10/17 04:00 98.0 75 17 121/68 (85) 99 98.0 12/10/17 00:16 98.2 72 19 117/60 (79) 97 98.2 12/09/17 21:14 98.2 12/09/17 20:00 98.2 72 17 120/74 (89) 98 98.2 12/09/17 16:17 98.1 82 18 117/66 (83) 95 98.1 Height (Feet): 5 Height (Inches): 7.00 Weight (Pounds): 153 General Appearance: no acute distress HEENT: normocephalic, atraumatic, anicteric, mucous membranes moist Respiratory/Chest: lungs clear, normal breath sounds, no respiratory distress Cardiovascular: normal rate, regular rhythm, no gallop/murmur, no JVD Abdomen: soft, non tender, no organomegaly, non distended Extremities: no cyanosis Skin: no rash, rash - hzv rash on left trunk is dryer, vesicles drying 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 normal, alert, responsive Lymphatic: no neck adenopathy Musculoskeletal: no effusion Objective none Microbiology Date/Time Source Procedure Growth Status 12/07/17 05:30 Blood Blood Culture - Preliminary NO GROWTH AFTER 48 HOURS Resulted Laboratory Tests Test 12/10/17 05:05 White Blood Count 3.8 K/UL (4.8-10.8) L Red Blood Count 4.96 M/UL (4.70-6.10) Hemoglobin 14.6 G/DL (14.2-18.0) Hematocrit 42.6 % (42.0-52.0) Mean Corpuscular Volume 86 FL (80-99) Mean Corpuscular Hemoglobin 29.4 PG (27.0-31.0) Mean Corpuscular Hemoglobin Concent 34.3 G/DL (32.0-36.0) Red Cell Distribution Width 11.5 % (11.6-14.8) L Platelet Count 165 K/UL (150-450) Mean Platelet Volume 7.4 FL (6.5-10.1) Neutrophils (%) (Auto) 59.2 % (45.0-75.0) Lymphocytes (%) (Auto) 20.7 % (20.0-45.0) Monocytes (%) (Auto) 12.9 % (1.0-10.0) H Eosinophils (%) (Auto) 5.5 % (0.0-3.0) H Basophils (%) (Auto) 1.8 % (0.0-2.0) Sodium Level 138 MMOL/L (136-145) Potassium Level 4.0 MMOL/L (3.5-5.1) Chloride Level 104 MMOL/L (98-107) Carbon Dioxide Level 27 MMOL/L (21-32) Anion Gap 7 mmol/L (5-15) Blood Urea Nitrogen 10 mg/dL (7-18) Creatinine 0.7 MG/DL (0.55-1.30) Estimat Glomerular Filtration Rate > 60 mL/min (>60) Glucose Level 99 MG/DL (74-106) Calcium Level 8.7 MG/DL (8.5-10.1) Current Medications Medications (Trade) Dose Ordered Sig/Artemio Route PRN Reason Start Time Stop Time Status Last Admin Dose Admin Acetaminophen (Tylenol) 650 mg Q4H PRN ORAL Mild Pain/Temp > 100.5 12/06/17 23:15 01/05/18 23:14 Acetaminophen/ Hydrocodone Bitart ([place] 5/325) 1 tab Q6H PRN ORAL Moderate Pain (Pain Scale 4-6) 12/06/17 23:15 12/13/17 23:14 12/08/17 08:42 Atovaquone (Mepron Susp) 750 mg TWICE A DAY ORAL 12/08/17 18:00 01/07/18 17:59 12/10/17 08:39 Azithromycin (Zithromax) 1,200 mg ONCE A WEEK ORAL 12/08/17 18:00 12/15/17 17:59 12/08/17 19:36 Dextrose/Sodium Chloride 1,000 ml @ 75 mls/hr [id number] IV 12/06/17 23:15 01/05/18 23:14 12/10/17 08:39 Morphine Sulfate (Morphine Sulfate) 2 mg Q6HR PRN IVP Severe Pain (Pain Scale 7-10) 12/06/17 23:15 12/13/17 23:14 12/10/17 08:39 Ondansetron HCl (Zofran) 4 mg Q6H PRN IVP Nausea & Vomiting 12/06/17 23:15 01/05/18 23:14 Dandre Red MD Dec 10, 2017 15:10
[2017-12-10 15:49] VITALS: BP 116/66
[2017-12-10 20:00] VITALS: BP 112/61
[2017-12-11] VITALS: BP 115/68
[2017-12-11 04:00] VITALS: BP 119/79
[2017-12-11] MEDS: Morphine Sulfate 2mg/ml Inj IVP PRN ×2 (06:04→12:56)
[2017-12-11 06:22] LABS: BASOPHILS % (AUTO) 1.7 % (0.0-2.0); EOSINOPHILS % (AUTO) 6.2 % (0.0-3.0); HEMATOCRIT 43.4 % (42.0-52.0); LYMPHOCYTES % (AUTO) 20.5 % (20.0-45.0); MEAN CORPUSCULAR VOLUME 86 FL (80-99); MONOCYTES % (AUTO) 12.1 % (1.0-10.0); NEUTROPHILS % (AUTO) 59.4 % (45.0-75.0); PLATELET COUNT 185 K/UL (150-450); RED BLOOD COUNT 5.06 M/UL (4.70-6.10); RED CELL DISTRIBUTION WIDTH 11.7 % (11.6-14.8); WHITE BLOOD COUNT 3.7 K/UL (4.8-10.8)
[2017-12-11 06:42] LABS: ANION GAP 9 mmol/L (5-15); BLOOD UREA NITROGEN 10 mg/dL (7-18); CALCIUM 8.7 MG/DL (8.5-10.1); CARBON DIOXIDE 26 MMOL/L (21-32); CHLORIDE 104 MMOL/L (98-107); CREATININE 0.7 MG/DL (0.55-1.30); POTASSIUM 3.9 MMOL/L (3.5-5.1); SODIUM 139 MMOL/L (136-145)
[2017-12-11 07:58] VITALS: BP 102/61
--- NOTE | 2017-12-11 09:05 | Consultation ---
Consult Note Consult Note Hematology Consult DOS: 12/11/17 REQ MD: Parris C: Leukopenia eval HPI Dear Dr. Nye and Dr. Hartmann, 32 yo man with HIV off medications c/o chest and back pain in ED Found to have Zoster and admitted Notes current pain in area of lesions around left chest through axillae and onto back No N/V No fevers or chills Current symptoms have improved but remains leukopenic PMHx: HIV FHx: Reviewed by me; not pertinent for this encounter SHx; No tobacco/EtOH Allergies: Coded Allergies: MEROPENEM (Verified Allergy, Mild, Rash, 12/07/17) SULFADIAZINE (Verified Allergy, Mild, Rash, 12/07/17) Medication History Scheduled Efavirenz/Emtricitab/Tenofovir (Atripla), 1 TAB ORAL DAILY, (Reported) Itraconazole (Itraconazole), 200 MG PO BID, (Reported) No Known Medications* (NKM - No Known Medications*), 0 ., (Reported) Patient History Limited by: language barrier History Provided By: Patient Healthcare decision maker Resuscitation status Full Code Advanced Directive on File No Review of Systems Constitutional: Reports: malaise, weakness Eye: Reports: no symptoms ENT: Reports: no symptoms Respiratory: Reports: no symptoms Cardiovascular: Reports: chest pain Gastrointestinal: Reports: no symptoms Genitourinary: Reports: no symptoms Musculoskeletal: Reports: back pain, muscle pain Skin: Reports: rash Psychiatric: Reports: no symptoms Neurological: Reports: tingling Endocrine: Reports: no symptoms Hematologic/Lymphatic: Reports: no symptoms All Other Systems: negative except mentioned in HPI Physical Exam General Appearance: no apparent distress, alert, thin Lines, tubes and drains: peripheral HEENT: normocephalic, atraumatic, mucous membranes moist, PERRL, EOMI, pharynx normal, supple Neck: non-tender, supple Respiratory/Chest: lungs clear, normal breath sounds Breasts: no masses Cardiovascular/Chest: normal peripheral pulses, normal rate, regular rhythm, no JVD Abdomen: normal bowel sounds, soft Extremities: normal range of motion Skin Exam: rash - vesicular eruption on left chest wall through axillae and onto left scapular area 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, no motor/sensory deficits Lymphatic: anterior cervical, posterior cervical (L), posterior cervical (R) Last 24 Hour Vital Signs Last 24 Hour Vital Signs Date Time Temp Pulse Resp B/P (MAP) Pulse Ox O2 Delivery O2 Flow Rate FiO2 12/11/17 07:58 97.7 63 20 102/61 (75) 96 97.7 12/11/17 06:34 98.0 12/11/17 06:04 98.0 12/11/17 04:00 98.0 64 18 119/79 (92) 98 98.0 12/11/17 00:00 97.9 59 18 115/68 (84) 99 97.9 12/10/17 20:00 98.0 63 18 112/61 (78) 99 98.0 12/10/17 15:49 98.1 78 18 116/66 (83) 97 98.1 12/10/17 12:28 97.5 73 18 119/74 (89) 97 97.5 Laboratory Tests Test 12/06/17 20:02 12/07/17 05:20 White Blood Count 3.4 K/UL (4.8-10.8) L 3.6 K/UL (4.8-10.8) L Red Blood Count 4.72 M/UL (4.70-6.10) 4.68 M/UL (4.70-6.10) L Hemoglobin 14.2 G/DL (14.2-18.0) 13.6 G/DL (14.2-18.0) L Hematocrit 40.7 % (42.0-52.0) L 40.4 % (42.0-52.0) L Mean Corpuscular Volume 86 FL (80-99) 86 FL (80-99) Mean Corpuscular Hemoglobin 30.2 PG (27.0-31.0) 29.0 PG (27.0-31.0) Mean Corpuscular Hemoglobin Concent 35.0 G/DL (32.0-36.0) 33.6 G/DL (32.0-36.0) Red Cell Distribution Width 11.5 % (11.6-14.8) L 11.6 % (11.6-14.8) Platelet Count 174 K/UL (150-450) 163 K/UL (150-450) Mean Platelet Volume 7.3 FL (6.5-10.1) 7.6 FL (6.5-10.1) Neutrophils (%) (Auto) 50.8 % (45.0-75.0) 63.7 % (45.0-75.0) Lymphocytes (%) (Auto) 28.4 % (20.0-45.0) 18.9 % (20.0-45.0) L Monocytes (%) (Auto) 14.4 % (1.0-10.0) H 12.4 % (1.0-10.0) H Eosinophils (%) (Auto) 4.1 % (0.0-3.0) H 4.0 % (0.0-3.0) H Basophils (%) (Auto) 2.2 % (0.0-2.0) H 1.0 % (0.0-2.0) Sodium Level 139 MMOL/L (136-145) 138 MMOL/L (136-145) Potassium Level 3.9 MMOL/L (3.5-5.1) 3.8 MMOL/L (3.5-5.1) Chloride Level 103 MMOL/L (98-107) 104 MMOL/L (98-107) Carbon Dioxide Level 27 MMOL/L (21-32) 23 MMOL/L (21-32) Anion Gap 9 mmol/L (5-15) 11 mmol/L (5-15) Blood Urea Nitrogen 20 mg/dL (7-18) H 18 mg/dL (7-18) Creatinine 0.9 MG/DL (0.55-1.30) 0.7 MG/DL (0.55-1.30) Estimat Glomerular Filtration Rate > 60 mL/min (>60) > 60 mL/min (>60) Glucose Level 88 MG/DL (74-106) 113 MG/DL (74-106) H Calcium Level 8.5 MG/DL (8.5-10.1) 7.9 MG/DL (8.5-10.1) L Total Bilirubin 1.1 MG/DL (0.2-1.0) H Direct Bilirubin 0.2 MG/DL (0.0-0.3) Aspartate Amino Transf (AST/SGOT) 30 U/L (15-37) Alanine Aminotransferase (ALT/SGPT) 30 U/L (12-78) Alkaline Phosphatase 108 U/L (46-116) Total Protein 8.6 G/DL (6.4-8.2) H Albumin 3.9 G/DL (3.4-5.0) Globulin 4.7 g/dL Albumin/Globulin Ratio 0.8 (1.0-2.7) L Height (Feet): 5 Height (Inches): 7.00 Weight (Pounds): 153 Medications Current Medications Medications (Trade) Dose Ordered Sig/Artemio Route PRN Reason Start Time Stop Time Status Last Admin Dose Admin Acetaminophen (Tylenol) 650 mg Q4H PRN ORAL Mild Pain/Temp > 100.5 12/06/17 23:15 01/05/18 23:14 Acetaminophen/ Hydrocodone Bitart ([place] 5/325) 1 tab Q6H PRN ORAL Moderate Pain (Pain Scale 4-6) 12/06/17 23:15 12/13/17 23:14 Acyclovir (Zovirax) 800 mg FIVE TIMES A DAY ORAL 12/07/17 07:00 01/06/18 06:59 12/07/17 08:58 Dextrose/Sodium Chloride 1,000 ml @ 75 mls/hr [id number] IV 12/06/17 23:15 01/05/18 23:14 12/06/17 23:50 Morphine Sulfate (Morphine Sulfate) 2 mg Q6HR PRN IVP Severe Pain (Pain Scale 7-10) 12/06/17 23:15 12/13/17 23:14 12/07/17 06:24 Ondansetron HCl (Zofran) 4 mg Q6H PRN IVP Nausea & Vomiting 12/06/17 23:15 01/05/18 23:14 Assessment/Plan #. Leukopenia is likely related to underyling HIV/AIDS --> send off for hepatitis panel --> in addition, consider neupogen if anc <1500 --> reverse isolation if anc drops any further #. Anemia due to chronic disease --> anemia panel has been ordered and to review --> hgb goal >7 #. Left trunk HZV/shingles - clinically better --> change to oral acyclovir x 1 week, 800 mg 5x/day as per id #. HIV and AIDS - CD4-86, non-complaint with anti-retrovirals --> triumeq as an outpatient, not available at [facility] --> azithromycin and atovaquone prophylaxis (+ sulfa allergy) --> can change atovaquone to dapsone 100 mg/daily if G6PD level normal, results pending GREATLY APPRECIATE CONSULTATION. Ramone Elise MD Dec 11, 2017 09:05
[2017-12-11] MEDS: Atovaquone 750mg/5ml Susp ORAL SCH ×2 (09:52→18:22)
[2017-12-11] MEDS: D5 1/2NS 1,000 ML IV SCH (09:52)
[2017-12-11] MEDS ORDERED: D5 1/2NS 1000ml IV ONE (10:29)
[2017-12-11 10:31] LABS: % IRON SATURATION 22 % (15-50); IRON 62 ug/dL (50-175); TOTAL IRON BINDING CAPACITY 281 ug/dL (250-450)
[2017-12-11 11:48] VITALS: BP 110/65
--- NOTE | 2017-12-11 12:57 | General Progress Note ---
Assessment/Plan Status: progressing Assessment/Plan 1) HZV Continue IV acyclovir Pain control 2) HIV/AIDS CD4 count 86 -ID recs appreciated- f/u viral load -prophylaxis- Bactrim, atovaquone 3) Leukopenia Likely secondary to HIV given CD4 count 86 Follow for signs of sepsis/superinfection of Zoster DVT Prophylaxis: scd's Code status: full Hospital Classification declaration: Based on this initial evaluation, and depending on the patient's clinical course, I anticipate that this patient will require hospitalization for 2-3 days. Disposition: Once the patient is stable to leave the hospital, I anticipate the patient will likely be discharged to the following environment:Home I spent 45 minutes on this patient's case, and 23 minutes was dedicated to counseling and/or care coordination. Time of note may not reflect time of encounter. Subjective Date patient seen: Dec 10, 2017 Time patient seen: 14:44 ROS Limited/Unobtainable: No Constitutional: Reports: no symptoms HEENT: Reports: no symptoms Cardiovascular: Reports: chest pain Respiratory: Reports: no symptoms Gastrointestinal/Abdominal: Reports: no symptoms Genitourinary: Reports: no symptoms Neurologic/Psychiatric: Reports: paresthesia, tingling Endocrine: Reports: no symptoms Hematologic/Lymphatic: Reports: no symptoms Allergies: Coded Allergies: MEROPENEM (Verified Allergy, Mild, Rash, 12/07/17) SULFADIAZINE (Verified Allergy, Mild, Rash, 12/07/17) All Systems: reviewed and negative except above Subjective Late Entry- patient seen on 12/10/2017 Events of overnight noted Chart reviewed Patient with continued pain, controlled with meds Objective Last 24 Hour Vital Signs Date Time Temp Pulse Resp B/P (MAP) Pulse Ox O2 Delivery O2 Flow Rate FiO2 12/11/17 11:48 97.5 65 18 110/65 (80) 98 97.5 12/11/17 07:58 97.7 63 20 102/61 (75) 96 97.7 12/11/17 06:34 98.0 12/11/17 06:04 98.0 12/11/17 04:00 98.0 64 18 119/79 (92) 98 98.0 12/11/17 00:00 97.9 59 18 115/68 (84) 99 97.9 12/10/17 20:00 98.0 63 18 112/61 (78) 99 98.0 12/10/17 15:49 98.1 78 18 116/66 (83) 97 98.1 Intake and Output 12/10/17 12/11/17 19:00 07:00 Intake Total 960 ml 420 ml Balance 960 ml 420 ml Intake Oral 960 ml 420 ml # Voids 5 1 # Bowel Movements 1 Laboratory Tests 12/11/17 05:25: White Blood Count 3.7L, Red Blood Count 5.06, Hemoglobin 15.0, Hematocrit 43.4, Mean Corpuscular Volume 86, Mean Corpuscular Hemoglobin 29.6, Mean Corpuscular Hemoglobin Concent 34.5, Red Cell Distribution Width 11.7, Platelet Count 185, Mean Platelet Volume 7.3, Neutrophils (%) (Auto) 59.4, Lymphocytes (%) (Auto) 20.5, Monocytes (%) (Auto) 12.1H, Eosinophils (%) (Auto) 6.2H, Basophils (%) ( Auto) 1.7, Reticulocyte Count 2.8H, Sodium Level 139, Potassium Level 3.9, Chloride Level 104, Carbon Dioxide Level 26, Anion Gap 9, Blood Urea Nitrogen 10 , Creatinine 0.7, Estimat Glomerular Filtration Rate > 60, Glucose Level 99, Calcium Level 8.7, Iron Level 62, Total Iron Binding Capacity 281, Percent Iron Saturation 22, Unsaturated Iron Binding 219, Hepatitis A IgM Antibody [Pending] , Hepatitis B Surface Antigen [Pending], Hepatitis B Core IgM Antibody [Pending] , Hepatitis C Antibody [Pending] 12/11/17 09:06: Prothrombin Time 10.4, Prothromb Time International Ratio 1.0 Height (Feet): 5 Height (Inches): 7.00 Weight (Pounds): 153 General Appearance: WD/WN, no apparent distress, alert EENT: PERRL/EOMI, normal ENT inspection, TMs normal, pharynx normal Neck: non-tender, supple Cardiovascular: normal peripheral pulses, normal rate, regular rhythm Respiratory/Chest: chest wall non-tender, lungs clear, normal breath sounds Abdomen: normal bowel sounds, non tender, soft Pelvis: normal external exam Extremities: normal range of motion Edema: no edema noted Arm (L), no edema noted Arm (R) Edema: trace edema Neurologic: other Skin: rash, other - vesicular rash, improving, with crusted over lesions Estevan Hartmann M.D. Dec 11, 2017 12:57
[2017-12-11] MEDS ORDERED: MEPRON SUS750 MG/5 M ORAL (14:06)
[2017-12-11] MEDS ORDERED: ZITHROMAX600 MG ORAL (14:06)
[2017-12-11] MEDS ORDERED: ACYCLOVIR800 MG ORAL (14:06)
--- NOTE | 2017-12-11 14:06 | Discharge Instructions ---
Discharge Instructions Discharge Instructions Follow up with: Your doctor to start medications for HIV Call MD/Return to Hospital if: fevers, chills or N/V Resume Normal Activity?: Yes For Congestive Heart Failure Reminder Report to your physician any weight gain of 5 pounds or more in one week. Estevan Hartmann M.D. Dec 11, 2017 14:06
[2017-12-11 16:15] VITALS: BP 120/70
--- NOTE | 2017-12-12 00:17 | Discharge Summary ---
Discharge Summary Hospital Course Date of Admission Dec 06, 2017 at 22:00 Date of Discharge Dec 11, 2017 at 18:30 Admitting Diagnosis shingles/immunocompromised Reason for Hospitalization: Pain;disseminated shingles HPI Jean Min is a 32 year old male who was admitted on Dec 06, 2017 at 22:00 for Shingles/Immunocompromised Consultations ID Procedures None Hospital Course Patient admitted given concern for disseminated Zoster and admitted for IV acyclovir ID consulted; CD4 count and viral load sent off CD4 count came back as 86 and prophylaxis started given diagnosis of AIDS Patient's lesions improved and he was stable for discharge on PO antivirals and azithromycin/atovaquone for MAC/PCP prophylaxis given diagnosis of AIDS He is to f/u with outpatient ID doctor to commence HAART Discharge Medications New Medications: Acyclovir* (Zovirax*) 800 Mg Tablet 800 MG ORAL FIVE TIMES A DAY for 10 Days, TAB Atovaquone (Mepron) 750 Mg/5 Ml Oral.susp 750 MG ORAL TWICE A DAY for 30 Days, ML Azithromycin (Zithromax) 600 Mg Tablet 1200 MG ORAL ONCE A WEEK for 30 Days, TAB Continued Medications: Efavirenz/Emtricitab/Tenofovir (Atripla) 1 Each Tablet 1 TAB ORAL DAILY, TAB Itraconazole (Itraconazole) 100 Mg Capsule 200 MG PO BID, #28 CAP Discharge Condition Upon Discharge: improving Discharge Disposition Patient was discharged to Home (01) Discharge Diagnoses: (1) Disseminated zoster (2) HIV disease (3) Hyponatremia Discharge Instructions Discharge Instructions Follow up with: Your doctor to start medications for HIV Call MD/Return to Hospital if: fevers, chills or N/V Estevan Hartmann MD Dec 12, 2017 00:17
--- NOTE | 2017-12-12 16:29 | Cardiology Report ---
APPROVED REPORT EKG Measurement Heart [id number] Normal sinus rhythm Normal ECG
== END 2017-12-11 18:30 | disposition home or self-care (01) | DRG 894 ==
LOC: EDBEDREQ 20:43 → EMR 21:47 → EDUNIT# 21:47 → 4W 22:00 → EDBEDREQ 22:18
DX: B02.8 Zoster with other complications (principal); B20 Human immunodeficiency virus [HIV] disease; Z91.14 Patient's other noncompliance with medication regimen; Z88.2 Allergy status to sulfonamides; Z88.8 Allergy status to other drugs, medicaments and biological substances
CPT/HCPCS: 36415; 80048; 80053; 82248; 82955; 83540; 83550; 85025; 85044; 85610; 86360; 86705; 86709; 86803; 87040; 87340; 87536; 93005; 99285

== ENCOUNTER 2019-05-21 19:30 | Emergency (ER) | payer OTHER ==
[~2019-05-21] VITALS: Ht 170.2 cm; Wt 65.8 kg
[~2019-05-21 19:30] MED LIST changes: +ACYCLOVIR800 MG ORAL; +MEPRON SUS750 MG/5 M ORAL; +NKM; +ZITHROMAX600 MG ORAL
--- NOTE | 2019-05-21 19:44 | Emergency Room Report ---
History of Present Illness General Chief Complaint: Toothache Source: Patient Present Illness HPI 33-year-old male with no significant past medical history here complaining of 2 days of right-sided lower molar pain and right maxillary swelling. Complains of a 10 out of 10 pain. Denies fever and chills, denies numbness of the face. Has an upcoming appointment with a dentist next Sunday. Has not taken medication for symptom relief. Denies headache and dizziness, denies chest pain , shortness of breath, palpitation, no other associated symptoms. Obvious swelling noted in right maxilla, patient very sensitive to touch to the right posterior molar on the lower side. Possible dental abscess. Allergies: Coded Allergies: MEROPENEM (Verified Allergy, Mild, Rash, 12/07/17) SULFADIAZINE (Verified Allergy, Mild, Rash, 12/07/17) Patient History Past Medical History: see triage record Past Surgical History: none Pertinent Family History: none Immunizations: UTD Reviewed Nursing Documentation: PMH: Agreed; PSxH: Agreed Nursing Documentation-PMH Past Medical History: No Stated History Hx Cardiac Problems: No - HIV Hx Hypertension: No Hx Pacemaker: No Hx Asthma: No Hx COPD: No Hx Diabetes: No Hx Cancer: No Hx Gastrointestinal Problems: No Hx Dialysis: No Hx Neurological Problems: No Hx Cerebrovascular Accident: No Hx Seizures: No Review of Systems All Other Systems: negative except mentioned in HPI Physical Exam Vital Signs Date Time Temp Pulse Resp B/P (MAP) Pulse Ox O2 Delivery O2 Flow Rate FiO2 2/20 19:33 98.4 105 19 128/82 (97) 99 Room Air Sp02 EP Interpretation: reviewed, normal General Appearance: no apparent distress, alert, GCS 15, non-toxic Head: normocephalic, atraumatic Eyes: bilateral eye normal inspection, bilateral eye PERRL ENT: hearing grossly normal, normal pharynx, no angioedema, normal voice, other - Possible dental abscess right lower molar Neck: full range of motion, supple/symm/no masses Respiratory: chest non-tender, lungs clear, normal breath sounds, no rhonchi, no retraction, no wheezing, speaking full sentences Cardiovascular #1: regular rate, rhythm, no edema, no murmur, normal capillary refill Gastrointestinal: soft Musculoskeletal: back normal, swelling - Right maxilla Neurologic: alert, motor strength/tone normal, oriented x3, sensory intact, responsive, speech normal Psychiatric: normal inspection, judgement/insight normal Skin: no rash Lymphatic: no adenopathy Medical Decision Making PA Attestation Diagnosis and treatment plans were reviewed and discussed with my supervising physician Dr. Lozano Diagnostic Impression: Primary Impression: Tooth abscess ER Course 33-year-old male with no significant past medical history here complaining of 2 days of right-sided lower molar pain and right maxillary swelling. Complains of a 10 out of 10 pain. Denies fever and chills, denies numbness of the face. Has an upcoming appointment with a dentist next Sunday. Has not taken medication for symptom relief. Denies headache and dizziness, denies chest pain , shortness of breath, palpitation, no other associated symptoms. Obvious swelling noted in right maxilla, patient very sensitive to touch to the right posterior molar on the lower side. Possible dental abscess. Ddx considered but are not limited to : Cellulitis, dental abscess versus infection versus dental pain, superficial infection, abscess Vital signs: are WNL, pt. is afebrile H&PE are most consistent with: Possible dental abscess ORDERS: Amoxicillin, ibuprofen, prednisone ED INTERVENTIONS: Toradol, prednisone, amoxicillin first dose DISCHARGE: At this time pt. is stable for d/c to home. Will provide printed patient care instructions, and any necessary prescriptions. Care plan and follow up instructions have been discussed with the patient prior to discharge. At this time patient is afebrile and has no pus drainage and not tender to touch I do not believe that any drainage is needed at this time. Patient to start taking antibiotics right away and follow with a dentist. Also gave a list of dental offices that patient can try to get a sooner appointment. If worsening symptoms return to the emergency room. Last Vital Signs Date Time Temp Pulse Resp B/P (MAP) Pulse Ox O2 Delivery O2 Flow Rate FiO2 05/21/19 19:33 98.4 105 19 128/82 (97) 99 Room Air Status: improved Disposition: HOME, SELF-CARE Condition: Stable Scripts Amoxicillin* (AMOXIL*) 500 Mg Capsule 500 MG ORAL EVERY 8 HOURS for 10 Days, #30 CAP Prov: Diana Waddell 05/21/19 Prednisone* (PREDNISONE*) 20 Mg Tablet 40 MG ORAL DAILY for 5 Days, #10 TAB Prov: Diana Waddell 05/21/19 Ibuprofen (Ibu) 800 Mg Tablet 800 MG PO TID, #21 TAB Prov: Diana Waddell 05/21/19 Patient Instructions: Dental Abscess, [id number], Dental Pain Additional Instructions: Follow-up with your dentist as possible, take medication as directed, if worsening symptoms, fever and chills, worsening symptoms return to the emergency room Diana Waddell May 21, 2019 19:44
[2019-05-21] MEDS ORDERED: Ketorolac 30mg Inj IM ONE (19:45)
[2019-05-21] MEDS ORDERED: AMOXICILLIN500 MG ORAL (19:46)
[2019-05-21] MEDS ORDERED: IBU800 MG PO (19:46)
[2019-05-21] MEDS ORDERED: PREDNISONE20 MG ORAL (19:46)
--- NOTE | 2019-05-21 19:46 | NUR ---
ED Nurse Note: Pt ambulated to ED from home c/o 01/23 tooth pain on R side since sunday, cheeck/jaw visibly swollen. Pt unable to eat, reports scheduling apointment with doctor. ERMD at chair, VSS
[2019-05-21 19:47] VITALS: BP 128/82
[2019-05-21 20:00] VITALS: BP 128/82
--- NOTE | 2019-05-21 20:00 | NUR ---
ER DISCHARGE NOTE: Patient is cleared to be discharged per ERMD, pt is aox4, on room air, with stable vital signs. pt was given dc and prescription instructions, pt was able to verbalize understanding, pt id band removed. pt is able to ambulate with steady gait. pt took all belongings.
== END 2019-05-21 20:00 | disposition home or self-care (01) ==
LOC: EMR 19:38
DX: K04.7 Periapical abscess without sinus (principal); B20 Human immunodeficiency virus [HIV] disease; Z88.8 Allergy status to other drugs, medicaments and biological substances
CPT/HCPCS: 96372; J1885; J7512; Z7502; 99283